=== PATIENT | male | born 1990 | race Caucasian/White ===

== ENCOUNTER 2025-01-14 15:06 | Emergency (ER) | payer BC, OTHER ==
[2025-01-14] MEDS ORDERED: LIDOCAINE 2% W/EPI 1:200,000 MPF 20 ML VIAL IM ONE (16:06)
[2025-01-14] MEDS ORDERED: HYDROCODONE/APAP 10/325 TAB ONE (16:50)
[2025-01-14] MEDS ORDERED: DOCUSATE NA 100 MG CAP PO ONE (16:50)
[2025-01-14] MEDS ORDERED: CIPROFLOXACIN HCL 500 MG TAB ONE (16:50)
--- NOTE | 2025-01-14 16:51 | ER ---
Nurse's Notes [facility] Name: Mateo Page Age: 35 yrs Sex: Male : 1990 Arrival Date: 01/14/2025 Time: 15:06 Bed 12 Private MD: Diagnosis: Other hemorrhoids-THROMBOSED / EXCISED Presentation: 01/14 15:44 Chief complaint: Patient states: Hemorrhoid onset Saturday that has been getting worse . cm10 Pt states that he was seen at [facility] and was told to come to the ER. No bleeding. Coronavirus screen: Client denies travel out of the [place] in the last 14 days. Ebola Screen: Patient denies travel to an Ebola-affected area in the 21 days before illness onset. Initial Sepsis Screen: Does the patient meet any 2 criteria? No. Patient's initial sepsis screen is negative. Does the patient have a suspected source of infection? No. Patient's initial sepsis screen is negative. Risk Assessment: Do you want to hurt yourself or someone else? Patient reports no desire to harm self or others. Onset of symptoms was January 14, 2025. 15:44 Method Of Arrival: Ambulatory cm10 15:44 Acuity: CAITLYN 3 cm10 Triage Assessment: 15:46 General: Appears in no apparent distress. uncomfortable, Behavior is calm, cooperative. cm10 Pain: Complains of pain in Rectum Pain currently is 9 out of 10 on a pain scale. Neuro: No deficits noted. Level of Consciousness is awake, alert, obeys commands, Oriented to person, place, time, situation, Appropriate for age. Respiratory: No deficits noted. Airway is patent Respiratory effort is even, unlabored, Respiratory pattern is regular, symmetrical. 15:46 GI: Hemorrhoids Reports hemorrhoids. cm10 Historical: - Allergies: 15:46 PENICILLINS; cm10 - Home Meds: 15:46 None [Active]; cm10 - PMHx: 15:46 None; cm10 - PSHx: 15:46 Right Hand; cm10 - Immunization history:: Adult Immunizations up to date. - Infectious Disease History:: Denies. - Social history:: Smoking status: Reported history of juuling and/or vaping. Screenin:[address] [facility] ED Fall Risk Assessment (Adult) History of falling in the last 3 months, cm10 including since admission No falls in past 3 months (0 pts) Confusion or Disorientation No (0 pts) Intoxicated or Sedated No (0 pts) Impaired Gait No (0 pts) Mobility Assist Device Used No (0 pt) Altered Elimination No (0 pt) Score/Fall Risk Level 0 - 2 = Low Risk Oriented to surroundings, Maintained a safe environment, Hourly rounding (assess needs \T\ fall precautionary measures) done. Abuse screen: Denies threats or abuse. Denies injuries from another. Nutritional screening: No deficits noted. Tuberculosis screening: No symptoms or risk factors identified. Vital Signs: 15:44 BP 109 / 81; Pulse 65; Resp 16; Temp 98.2(O); Pulse Ox 96% on R/A; Weight 79.38 kg; cm10 Height 5 ft. 9 in. ; Pain 9/10; 15:44 Body Mass Index 25.84 (79.38 kg, 175.26 cm) cm10 15:44 Pain Scale: Adult cm10 ED Course: 15:11 Patient arrived in ED. im 15:23 Fernando Burk MD is Attending Physician. [facility] 15:46 Triage completed. cm10 15:46 Arm band placed on right wrist. Patient placed in waiting room. cm10 16:00 Patient has correct armband on for positive identification. Placed in gown. Bed in low cm10 position. Call light in reach. 16:01 Em Rutherford, RN is Primary Nurse. cm10 16:36 Served as a customer care coordinator during rectal exam. Patient did not have IV access during this 10 emergency room visit. 16:50 Levy Newsome MD is Referral Physician. [facility] 16:58 Provided Education on: Follow-up instructions. [facility] Administered Medications: 16:48 Drug: Lidocaine-Epinephrine Infiltration -1%: (1:100,000) 10 ml 20 ml Infiltration cm10 once; to bedside Volume: 20 ml; Route: Infiltration; 16:57 Drug: Ciprofloxacin PO 500 mg PO once Route: PO; cm10 16:57 Follow up: Response: No adverse reaction cm10 16:57 Drug: Docusate PO 200 mg PO once Route: PO; cm10 16:57 Follow up: Response: No adverse reaction cm10 16:57 Drug: [place] PO 10 mg-325 mg 1 tabs PO once Route: PO; cm10 16:57 Follow up: Response: No adverse reaction cm10 Medication: 16:36 VIS not applicable for this client. cm10 Outcome: 16:50 Discharge ordered by . audra 16:58 Discharged to home ambulatory, with significant other, cm10 16:58 Condition: good 16:58 Discharge instructions given to patient, Instructed on discharge instructions, follow up and referral plans. medication usage, Demonstrated understanding of instructions, follow-up care, medications, Prescriptions given X 3, 16:58 Patient left the ED. cm10 Signatures: Fernando Burk MD MD cha Mendoza, Itzel im Martinez, Clarissa RN RN cm10 Corrections: (The following items were deleted from the chart) 15:46 15:46 Allergies: No Known Allergies; cm10 cm10 16:36 15:46 Pain: Complains of pain in Rectum Pain currently is 9 out of 10 on a pain scale. cm10 cm10
--- NOTE | 2025-01-14 16:51 | EDPHYS ---
Physician Documentation [facility] Name: Mateo Page Age: 35 yrs Sex: Male : 1990 Arrival Date: 01/14/2025 Time: 15:06 Bed 12 Private MD: [place] Physician Fernando Burk HPI: 01/14 16:45 This 35 yrs old Male presents to ER via Ambulatory with complaints of audra Hemorrhoids. 16:45 The patient presents to the emergency department with rectal bleeding, hemorrhoids. audra Onset: The symptoms/episode began/occurred 3 day(s) ago. Abdominal pain: none is appreciated. thrombosed hemorrhoids. Associated signs and symptoms: The patient has no apparent associated signs or symptoms. Severity of symptoms: At their worst the symptoms were moderate in the emergency department the symptoms are unchanged. Historical: - Allergies: 15:46 PENICILLINS; cm10 - Home Meds: 15:46 None [Active]; cm10 - PMHx: 15:46 None; cm10 - PSHx: 15:46 Right Hand; cm10 - Immunization history:: Adult Immunizations up to date. - Infectious Disease History:: Denies. - Social history:: Smoking status: Reported history of juuling and/or vaping. ROS: 16:46 Constitutional: Negative for fever, chills, and weight loss, Eyes: Negative for injury, audra pain, redness, and discharge, ENT: Negative for injury, pain, and discharge, Neck: Negative for injury, pain, and swelling, Cardiovascular: Negative for chest pain, palpitations, and edema, Respiratory: Negative for shortness of breath, cough, wheezing, and pleuritic chest pain, Back: Negative for injury and pain, : Negative for injury, bleeding, discharge, and swelling, MS/Extremity: Negative for injury and deformity, Skin: Negative for injury, rash, and discoloration, Neuro: Negative for headache, weakness, numbness, tingling, and seizure, Psych: Negative for depression, anxiety, suicide ideation, homicidal ideation, and hallucinations, Allergy/Immunology: Negative for hives, rash, and allergies, Endocrine: Negative for neck swelling, polydipsia, polyuria, polyphagia, and marked weight changes, 16:46 Abdomen/GI: Positive for rectal pain, of the , Exam: 16:46 Constitutional: This is a well developed, well nourished patient who is awake, alert, audra and in no acute distress. Head/Face: Normocephalic, atraumatic. Eyes: Pupils equal round and reactive to light, extra-ocular motions intact. Lids and lashes normal. Conjunctiva and sclera are non-icteric and not injected. Cornea within normal limits. Periorbital areas with no swelling, redness, or edema. ENT: Nares patent. No nasal discharge, no septal abnormalities noted. Tympanic membranes are normal and external auditory canals are clear. Oropharynx with no redness, swelling, or masses, exudates, or evidence of obstruction, uvula midline. Mucous membranes moist. Neck: Trachea midline, no thyromegaly or masses palpated, and no cervical lymphadenopathy. Supple, full range of motion without nuchal rigidity, or vertebral point tenderness. No Meningismus. Chest/axilla: Normal chest wall appearance and motion. Nontender with no deformity. No lesions are appreciated. Cardiovascular: Regular rate and rhythm with a normal S1 and S2. No gallops, murmurs, or rubs. Normal PMI, no JVD. No pulse deficits. Respiratory: Lungs have equal breath sounds bilaterally, clear to auscultation and percussion. No rales, rhonchi or wheezes noted. No increased work of breathing, no retractions or nasal flaring. Back: No spinal tenderness. No costovertebral tenderness. Full range of motion. Male : Normal genitalia with no discharge or lesions. Skin: Warm, dry with normal turgor. Normal color with no rashes, no lesions, and no evidence of cellulitis. MS/ Extremity: Pulses equal, no cyanosis. Neurovascular intact. Full, normal range of motion., bilateral aka Neuro: Awake and alert, GCS 15, oriented to person, place, time, and situation. Cranial nerves II-XII grossly intact. Motor strength 5/5 in all extremities. Sensory grossly intact. Cerebellar exam normal. Normal gait. Psych: Awake, alert, with orientation to person, place and time. Behavior, mood, and affect are within normal limits. 16:46 Abdomen/GI: Rectal exam: hemorrhoid(s), with thrombosis, swelling, that is moderate, Vital Signs: 15:44 BP 109 / 81; Pulse 65; Resp 16; Temp 98.2(O); Pulse Ox 96% on R/A; Weight 79.38 kg; cm10 Height 5 ft. 9 in. ; Pain 9/10; 15:44 Body Mass Index 25.84 (79.38 kg, 175.26 cm) cm10 15:44 Pain Scale: Adult cm10 Procedures: 16:51 I \T\ D: Incision and drainage was performed for an abscess of the external hemorrhoid audra Prepped with Betadine, Anesthetized with 10 ml's 1% Lidocaine w/ Epi. Incised with #11 blade. Drained small amount the patient tolerated the procedure well, MULTIPLE CLOTS REMOVED. MDM: 15:24 Medical Screening Exam initiated audra 16:49 Differential diagnosis: hemorrhoids. Data reviewed: vital signs, nurses notes. I audra considered the following discharge prescriptions or medication management in the emergency department Medications were administered in the Emergency Department. See MAR. Test considered but Not performed: Labs: no labss. 01/14 16:45 Order name: Dressing - Wound; Complete Time: 16:48 [facility] 01/14 16:45 Order name: Gloves, Sterile; Complete Time: 16:48 [facility] 01/14 16:45 Order name: Setup Suture Tray; Complete Time: 16:48 [facility] Administered Medications: 16:48 Drug: Lidocaine-Epinephrine Infiltration -1%: (1:100,000) 10 ml 20 ml Infiltration cm10 once; to bedside Volume: 20 ml; Route: Infiltration; 16:57 Drug: Ciprofloxacin PO 500 mg PO once Route: PO; cm10 16:57 Follow up: Response: No adverse reaction cm10 16:57 Drug: Docusate PO 200 mg PO once Route: PO; cm10 16:57 Follow up: Response: No adverse reaction cm10 16:57 Drug: [place] PO 10 mg-325 mg 1 tabs PO once Route: PO; cm10 16:57 Follow up: Response: No adverse reaction cm10 Disposition Summary: 01/14/25 16:50 Discharge Ordered Notes: Location: Home audra Problem: new audra Symptoms: have improved audra Condition: Stable audra Diagnosis - Other hemorrhoids - THROMBOSED / EXCISED audra Followup: audra - With: Private Physician - When: 2 - 3 days - Reason: Recheck today's complaints, Continuance of care, Re-evaluation by your physician Followup: audra - With: Levy Newsome MD - When: 2 - 3 days - Reason: Recheck today's complaints, Re-evaluation by your physician Discharge Instructions: - Discharge Summary Sheet audra - High-Fiber Eating Plan audra - Hemorrhoids audra - Surgical Procedures for Hemorrhoids, Care After audra - Hemorrhoids, [id number] audra - Surgical Procedures for Hemorrhoids audra Forms: - Medication Reconciliation Form audra - Antibiotic Education audra - Prescription Opioid Use audra - Patient Portal Instructions audra - Leadership Thank You Letter [facility] Prescriptions: - Colace 100 mg Oral Tablet - take 1 tablet ORAL route every 12 hours; 14 tablet; Refills: 0, Product [facility] Selection Permitted - Cipro 500 mg Oral Tablet - take 1 tablet ORAL route every 12 hours for 7 days; 14 tablet; Refills: 0, [facility] Product Selection Permitted - Tylenol-Codeine #3 300mg-30mg Oral tablet - take 2 tablets ORAL route every 6 hours As needed; 20 tablet; Refills: 0, [facility] Product Selection Permitted Signatures: Fernando Burk MD MD cha Martinez, Clarissa, RN RN cm10 Corrections: (The following items were deleted from the chart) 15:46 15:46 Allergies: No Known Allergies; cm10 cm10
[2025-01-14 17:03] VITALS: BP 109/81; TEMP 98.2; O2SAT 96
== END 2025-01-14 16:58 | disposition home or self-care (01) ==
LOC: ER 15:06
DX: K64.5 Perianal venous thrombosis (principal)
CPT/HCPCS: 10060; 99283